=== PATIENT | male | born 1960 | race Caucasian/White ===

== ENCOUNTER → 2022-07-27 10:24 | Outpatient (BNVA) | payer MEDICARE, MEDICAID, SELFPAY | PROVIDERS: Family Provider Internal Medicine; PCP Internal Medicine; Visit Provider Podiatrist Foot & Ankle Surgery | DX: E11.8 Type 2 diabetes mellitus with unspecified complications (principal); E11.40 Type 2 diabetes mellitus with diabetic neuropathy, unspecified; M21.41 Flat foot [pes planus] (acquired), right foot; M21.42 Flat foot [pes planus] (acquired), left foot; L60.3 Nail dystrophy; L84 Corns and callosities; M20.41 Other hammer toe(s) (acquired), right foot; M20.42 Other hammer toe(s) (acquired), left foot; M20.31 Hallux varus (acquired), right foot; Z79.84 Long term (current) use of oral hypoglycemic drugs | CPT/HCPCS: 99214 ==

== ENCOUNTER → 2023-01-25 08:41 | Outpatient (BNVA) | payer MEDICARE, MEDICAID, SELFPAY | PROVIDERS: Family Provider Internal Medicine; PCP Internal Medicine; Visit Provider Podiatrist Foot & Ankle Surgery | DX: E11.8 Type 2 diabetes mellitus with unspecified complications (principal); E11.40 Type 2 diabetes mellitus with diabetic neuropathy, unspecified; M21.41 Flat foot [pes planus] (acquired), right foot; M21.42 Flat foot [pes planus] (acquired), left foot; L60.3 Nail dystrophy; L84 Corns and callosities; Z79.84 Long term (current) use of oral hypoglycemic drugs; M20.41 Other hammer toe(s) (acquired), right foot; M20.42 Other hammer toe(s) (acquired), left foot; M20.31 Hallux varus (acquired), right foot | CPT/HCPCS: 11056; 11721 ==

== ENCOUNTER → 2023-04-12 13:35 | Outpatient (BNVA) | payer MEDICARE, MEDICAID, SELFPAY | PROVIDERS: Family Provider Internal Medicine; PCP Internal Medicine; Visit Provider Podiatrist Foot & Ankle Surgery | DX: E11.40 Type 2 diabetes mellitus with diabetic neuropathy, unspecified (principal); L60.8 Other nail disorders; L60.3 Nail dystrophy; L84 Corns and callosities; M20.42 Other hammer toe(s) (acquired), left foot; M20.41 Other hammer toe(s) (acquired), right foot; M20.31 Hallux varus (acquired), right foot; Z79.84 Long term (current) use of oral hypoglycemic drugs; M21.42 Flat foot [pes planus] (acquired), left foot; M21.41 Flat foot [pes planus] (acquired), right foot | CPT/HCPCS: 11056; 11721 ==

== ENCOUNTER → 2023-06-22 13:55 | Outpatient (BNVA) | payer MEDICARE, MEDICAID, SELFPAY | PROVIDERS: Family Provider Internal Medicine; PCP Internal Medicine; Visit Provider Podiatrist Foot & Ankle Surgery | DX: E11.40 Type 2 diabetes mellitus with diabetic neuropathy, unspecified (principal); M21.41 Flat foot [pes planus] (acquired), right foot; M21.42 Flat foot [pes planus] (acquired), left foot; M20.30 Hallux varus (acquired), unspecified foot; L60.3 Nail dystrophy; L84 Corns and callosities; M20.42 Other hammer toe(s) (acquired), left foot; M20.41 Other hammer toe(s) (acquired), right foot; M20.31 Hallux varus (acquired), right foot; Z79.84 Long term (current) use of oral hypoglycemic drugs | CPT/HCPCS: 11055; 11721 ==

== ENCOUNTER → 2023-08-22 14:00 | Outpatient (BNVA) | payer MEDICARE, MEDICAID, SELFPAY | PROVIDERS: Family Provider Internal Medicine; PCP Internal Medicine; Referring Provider Nurse Practitioner Family; Visit Provider Surgery | DX: Z12.11 Encounter for screening for malignant neoplasm of colon (principal) | CPT/HCPCS: 99024; 99203 ==

== ENCOUNTER → 2023-09-14 13:04 | Outpatient (BNVA) | payer MEDICARE, MEDICAID, SELFPAY | PROVIDERS: Family Provider Internal Medicine; PCP Internal Medicine; Visit Provider Podiatrist Foot & Ankle Surgery | DX: E11.40 Type 2 diabetes mellitus with diabetic neuropathy, unspecified (principal); M20.41 Other hammer toe(s) (acquired), right foot; M20.42 Other hammer toe(s) (acquired), left foot; M21.41 Flat foot [pes planus] (acquired), right foot; M21.42 Flat foot [pes planus] (acquired), left foot; M20.31 Hallux varus (acquired), right foot; L60.3 Nail dystrophy; L84 Corns and callosities; Z79.84 Long term (current) use of oral hypoglycemic drugs | CPT/HCPCS: 11056; 11721 ==

== ENCOUNTER 2023-12-15 15:57 | Emergency (ER) | payer MEDICARE, MEDICAID, SELFPAY ==
[2023-12-15] VITALS (18 sets, daily range): BP systolic 145–198; BP diastolic 78–108; PULSE 75–92; RESP 18; TEMP 36.6; O2SAT 91–100
--- NOTE | 2023-12-15 16:00 | ECG_ITS ---
[facility] Test Date: 2023-12-15 Pat Name: Osorio Garcia Department: Room: Gender: Male International Logistics Manager: : 1960 Requested By: Angelo Ramos Order Number: [id number] Ciera MD: Yasir Jennings M.D. Measurements Intervals [place] Rate: 83 P: -9 FL: 147 QRS: 23 QRSD: 108 T: 139 QT: 354 QTc: 418 Interpretive Statements SINUS RHYTHM ST DEVIATION AND MODERATE T-WAVE ABNORMALITY, CONSIDER LATERAL ISCHEMIA [-0.1+ mV T-WAVE IN I/aVL/V5/V6] No previous ECG available for comparison Electronically Signed On 12-15-2023 22:12:51 CDT by Yasir Jennings M.D. [email or web address].[employer]/store/NU/[id number] f
--- NOTE | 2023-12-15 16:06 | XRR_ITS ---
PROCEDURE INFORMATION: Exam: XR Chest Exam date and time: 12/15/2023 4:30 PM Age: 63 years old Clinical indication: Other: Chest pain, left shoulder pain TECHNIQUE: Imaging protocol: Radiologic exam of the chest. Views: 1 view. COMPARISON: CR XR chest 2V* [id number] 11/03/2017 11:52 AM FINDINGS: Lungs: Unremarkable. No consolidation. Pleural spaces: Unremarkable. No pleural effusion. No pneumothorax. Heart/Mediastinum: Unremarkable. No cardiomegaly. Bones/joints: Visualized osseous structures show no acute abnormality. Other findings: No significant change with prior exam. XR/XR chest 1V portable [id number] IMPRESSION: No acute cardiopulmonary abnormality.
--- NOTE | 2023-12-15 17:19 | ED_ITS ---
HPI - Chest Pain 2 General: Chief Complaint: Chest Pain Stated Complaint: chest pain, left arm pain and back pain Time Seen by Provider: 12/15/23 16:54 History of Present Illness: Presents to the ER with complaints of off-and-on chest pain over the last few weeks. Patient said the pain is reproducible with palpation. Patient has no cardiac history. Patient states the pain comes and goes on its own free will nothing will bring it on or take it away. Patient is a diabetic and takes 2 aspirin a day. Patient denies any nausea vomiting coughs colds fever chills diarrhea constipation shortness of breath diaphoresis. Review of Systems 2 General: Reports: 10 or more systems reviewed and unremarkable except in HPI and below PFSH ED 2 PFSH: Medical History Diabetes Hypertension GERD (gastroesophageal reflux disease) Morbid obesity Social History Smoking and tobacco/nicotine status: former use of tobacco/nicotine Physical Exam 2 Const: COMMON NORMALS: no acute distress, average body habitus, patient oriented x3, no limitations, healthy appearing, alert and well nourished HENMT: COMMON NORMALS: normocephalic, atraumatic, hearing grossly normal bilaterally, external ears normal, Normal external nose present, moist oral mucous membranes and oropharynx normal HEAD & SCALP: normocephalic and atraumatic NOSE: Normal external nose present EXTERNAL EAR: Yes external ears normal Neck/C-Spine: COMMON NORMALS: no JVD Chest: COMMONS NORMALS: normal inspection of the chest; negative for normal palpation of entire chest wall (Palpation of anterior chest wall reproduces pain) Resp: COMMON NORMALS: normal respiratory effort, No retractions, No use of accessory muscles and clear to auscultation bilaterally AUSCULTATION: clear to auscultation bilaterally Cardio: COMMON NORMALS: no JVD, regular rate, regular rhythm, S1 normal heart sound present, S2 normal heart sound present, No gallops present (Cardio), No clicks present (Cardio), No murmurs present (Cardio) and No rub (Cardio) R ATE: regular rate RHYTHM: regular rhythm HEART SOUNDS: S1 normal heart sound present and S2 normal heart sound present GI: COMMON NORMALS: Normal to inspection, nondistended, normoactive bowel sounds present, Soft to palpation, non-tender, No hepatosplenomegaly present and no masses PALPATION: Yes Soft to palpation and Yes No hepatosplenomegaly present Neuro: COMMON NORMALS: patient oriented x3 SENSORIUM/ORIENTATION: Yes alert Course 2 Vital Signs: Vital signs: Vital Signs Temperature 97.9 F 12/15/23 16:04 Pulse Rate 78 12/15/23 20:52 Respiratory Rate 18 12/15/23 16:04 Blood Pressure 198/108 12/15/23 20:30 Pulse Oximetry 98 12/15/23 20:52 Oxygen Delivery Me thod Room Air 12/15/23 20:52 MDM - Chest Pain Medical Decision Making Patient was worked up in a standard cardiac fashion with serial EKGs, cardiac enzymes chest x-ray. Patient's white count was slightly elevated at 16, troponin baseline was 81 and 2-hour was 83.3 for delta of 2.3. During the patient stay his home blood pressure continued to rise until it was approximately 198/108 patient was given 20 mg of hydralazine IV. Anticipate this will reduce his blood pressure and patient be discharged home to follow-up with his PCP for further evaluation testing. Differential Diagnosis Unlikely acute massive pulmonary embolism, acute respiratory failure, acute myocardial infarction, cardiac arrest or sudden cardiac Medical Records I reviewed the patient's medical records. Lab Data I reviewed the patient's lab results. 12/15/23 17:12 12/15/23 17:12 Radiology Impressions Chest X-Ray 12/15/23 16:06 IMPRESSION: No acute cardiopulmonary abnormality. Laboratory Results WBC 16.10 10^3/uL (3.29-11.43) H 12/15/23 17:12 RBC 5.56 10^6/uL (3.85-5.65) 12/15/23 17:12 Hgb 14.90 g/dL (11.27-16.99) 12/15/23 17:12 Hct 43.8 % (37-53) 12/15/23 17:12 MCV 78.8 fl (82-101) L 12/15/23 17:12 MCH 26.8 pg (27-33) L 12/15/23 17:12 MCHC 34.0 g/dL (30-55) 12/15/23 17:12 RDW 13.3 % (12.1-15.1) 12/15/23 17:12 Plt Count 348 10^3/cmm (157-399) 12/15/23 17:12 MPV 9.4 fL (7.4-10.4) 12/15/23 17:12 Neut % (Auto) 69.7 % 12/15/23 17:12 Lymph % (Auto) 22.1 % 12/15/23 17:12 [place] % (Auto) 5.9 % 12/15/23 17:12 Eos % (Auto) 1.7 % 12/15/23 17:12 Baso % (Auto) 0.4 % 12/15/23 17:12 Neut # (Auto) 11.22 10^3/uL (1.8-7.7) H 12/15/23 17:12 Lymph # (Auto) 3.6 10^3/uL (0.8-4.8) 12/15/23 17:12 [place] # (Auto) 1.0 10^3/uL (0.2-0.9) H 12/15/23 17:12 Eos # (Auto) 0.3 10^3/uL (0.0-0.8) 12/15/23 17:12 Baso # (Auto) 0.1 10^3/uL (0.0-0.1) 12/15/23 17:12 Nucleated RBC % (auto) 0 % 12/15/23 17:12 Nucleated RBCs # 0.0 /100WBC 12/15/23 17:12 Sodium 135 mmol/L (136-145) L 12/15/23 17:12 Potassium 3.3 mmol/L (3.5-5.1) L 12/15/23 17:12 Chloride 93 mmol/L (98-107) L 12/15/23 17:12 Carbon Dioxide 28 mmol/L (22-29) 12/15/23 17:12 Anion Gap 17.3 (5-19) 12/15/23 17:12 BUN 15 mg/dL (8-23) 12/15/23 17:12 Creatinine 0.9 mg/dL (0.7-1.2) 12/15/23 17:12 GFR Calculation 85.8 mL/min (90-130) L 12/15/23 17:12 Glucose 76 mg/dL (65-115) 12/15/23 17:12 Calculated Osmolality 280 mOsm/kg (285-295) L 12/15/23 17:12 Calcium 9.1 mg/dL (8.5-10.5) 12/15/23 17:12 Total Bilirubin 0.9 mg/dL (0.15-1.2) 12/15/23 17:12 AST 23 U/L (0-40) 12/15/23 17:12 ALT 19 U/L (0-41) 12/15/23 17:12 Alkaline Phosphatase 104 U/L (40-130) 12/15/23 17:12 Troponin T Baseline 81 ng/L (0-15) H 12/15/23 17:12 Troponin T 120 Minute 83.30 ng/L (0-15) H 12/15/23 19:11 Delta Troponin T 2.30 ABS# (0-10) 12/15/23 19:11 NT-Pro-B Natriuret Pep 103 pg/mL (0-125) 12/15/23 17:12 Total Protein 6.5 g/dL (6.6-8.7) L 12/15/23 17:12 Albumin 4.2 g/dL (3.5-5.2) 12/15/23 17:12 Globulin 2.3 g/dL (1.3-4.6) 12/15/23 17:12 Lipase 25 U/L (13-60) 12/15/23 17:12 All radiology interpretation(s) finalized by discharge Discharge Plan Discharge Patient Disposition: Home Clinical Impression: Atypical chest pain Hypertension Qualifiers: Hypertension type: unspecified Qualified Code(s): I10 - Essential (primary) hypertension Condition: Stable Prescriptions: No Action lisinopril 40 mg tablet 40 mg PO DAILY omeprazole 20 mg capsule,delayed release(DR/EC) 20 mg PO DAILY aspirin 81 mg tablet,delayed release (DR/EC) 81 mg PO DAILY metformin 1,000 mg tablet extended release 24hr 1,000 mg PO DAILY hydrochlorothiazide 25 mg tablet 25 mg PO DAILY hydrocodone-acetaminophen [[place]] 5-325 mg tablet 1 tab PO Q4H PRN benzonatate 100 mg capsule 100 mg PO BID PRN Trulicity 1.5 mg/0.5 mL pen injector SUBCUT (DME) Diabetic shoes See Rx Instructions .ROUTE .MEDSUPPLY Qty: 1 0RF Rx Instructions: As directed, with 3 pairs of inserts (DME) Diabetic shoes See Rx Instructions .ROUTE .MEDSUPPLY Qty: 1 0RF Rx Instructions: With 3 pairs of inserts made by the [employer] potassium chloride 20 mEq tablet,ER particles/crystals 20 meq PO DAILY Discharge Orders: Discharge ED (Routine); Ordered 12/15/23 Ordered By: Ld Schwab Referrals: Chio Camara MD [Primary Care Provider] - 1 week Patient Instructions: Chest Pain (ED), Hypertension (ED) Activity Restrictions/Additional Instructions: Your chest pain evaluation in the ER did not show any acute cardiac cause of chest pain. Your chest pain more likely is noncardiac in nature. Please follow-up with your family practitioner within next 7 to 10 days for further evaluation and testing. Please take your blood pressure at least 1 time daily keep blood pressure log and take it to you Coding Level of Care Code ED [employer] for Gianfranco Wilcox
[2023-12-15 17:44] LABS: Basophils # 0.1 10^3/uL (0.0-0.1); Basophils % 0.4 %; Eosinophils # 0.3 10^3/uL (0.0-0.8); Eosinophils % 1.7 %; Hematocrit 43.8 % (37-53); Lymphocytes # 3.6 10^3/uL (0.8-4.8); Lymphocytes % 22.1 %; Mean Corpuscular Hemoglobin 26.8 pg (27-33); Mean Corpuscular Volume 78.8 fl (82-101); Mean Platelet Volume 9.4 fL (7.4-10.4); Monocytes % 5.9 %; Neutrophils # 11.22 10^3/uL (1.8-7.7); Neutrophils % 69.7 %; Nucleated Red Blood Cells % 0 %; Platelet Count 348 10^3/cmm (157-399); Red Blood Count 5.56 10^6/uL (3.85-5.65); Red Cell Distribution Width 13.3 % (12.1-15.1)
--- NOTE | 2023-12-15 18:06 | ECG_ITS ---
[facility] Test Date: 2023-12-15 Pat Name: Osorio Garcia Department: Room: Gender: Male Residential Care Facility Manager: : 1960 Requested By: Angelo Ramos Order Number: [id number] Ciera MD: Yasir Jennings M.D. Measurements Intervals [place] Rate: 79 P: 41 [place]: 197 QRS: 21 QRSD: 113 T: 133 QT: 401 QTc: 462 Interpretive Statements SINUS RHYTHM MODERATE INTRAVENTRICULAR CONDUCTION DELAY [110+ ms QRS DURATION] ST DEVIATION AND MODERATE T-WAVE ABNORMALITY, CONSIDER LATERAL ISCHEMIA [-0.1+ mV T-WAVE IN I/aVL/V5/V6] Compared to ECG 12/15/2023 16:00:44 Intraventricular conduction delay now present T-wave abnormality still present Possible ischemia still present Electronically Signed On 12-15-2023 22:19:34 CDT by Yasir Jennings M.D. [email or web address] centerT[facility].[employer]/store/OM/[id number]
[2023-12-15 18:07] LABS: Troponin(5th) Baseline 81 ng/L (0-15)
[2023-12-15 18:12] LABS: Alanine Aminotransferase 19 U/L (0-41); Albumin Level 4.2 g/dL (3.5-5.2); Alkaline Phosphatase 104 U/L (40-130); Blood Urea Nitrogen 15 mg/dL (8-23); Calcium 9.1 mg/dL (8.5-10.5); Carbon Dioxide 28 mmol/L (22-29); Chloride 93 mmol/L (98-107); Creatinine Clr Calc Pharmacy 115.6414; Globulin 2.3 g/dL (1.3-4.6); Glomerular Filtration Rate 85.8 mL/min (90-130); Glucose 76 mg/dL (65-115); Lipase 25 U/L (13-60); NT Pro B Type Natriuretic Pept 103 pg/mL (0-125); Osmolality Calculated 280 mOsm/kg (285-295); Sodium 135 mmol/L (136-145); Total Bilirubin 0.9 mg/dL (0.15-1.2); Total Protein 6.5 g/dL (6.6-8.7)
[2023-12-15 18:14] LABS: Anion Gap 17.3 (5-19); Aspartate Amino Transferase 23 U/L (0-40); Potassium 3.3 mmol/L (3.5-5.1)
[2023-12-15] MEDS: hyDRALAzine 20 mg/mL INJ 1 mL IVP (20:59)
[2023-12-15 21:44] LABS: Glucose Point of Care 105 mg/dL (70-110)
--- NOTE | 2023-12-15 22:06 | ECG_ITS ---
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 Measurements Intervals [place] Rate: 83 P: -2 [place]: 171 QRS: 36 QRSD: 130 T: 71 QT: 398 QTc: 469 Interpretive Statements SINUS RHYTHM MODERATE INTRAVENTRICULAR CONDUCTION DELAY [110+ ms QRS DURATION] NONSPECIFIC ST & T-WAVE ABNORMALITY Compared to ECG 12/15/2023 18:15:47 Possible ischemia no longer present T-wave abnormality still present Electronically Signed On 12-15-2023 22:19:50 CDT by Yasir Jennings M.D. [email or web address].[employer]/store/OM/[id number]
== END 2023-12-15 22:16 | disposition home or self-care (01) ==
PROVIDERS: Nurse Practitioner Family; Emergency Provider Emergency Medicine; PCP Internal Medicine
DX: R07.89 Other chest pain (principal); I10 Essential (primary) hypertension; Z79.82 Long term (current) use of aspirin; Z79.84 Long term (current) use of oral hypoglycemic drugs; Z79.85 Long-term (current) use of injectable non-insulin antidiabetic drugs; E11.9 Type 2 diabetes mellitus without complications; Z87.891 Personal history of nicotine dependence
CPT/HCPCS: 36415; 36416; 71045; 80053; 82962; 83690; 83880; 84484; 85025; 93005; 96374; 99285; J0360

== ENCOUNTER → 2023-12-21 11:13 | Outpatient (BNVA) | payer MEDICARE, MEDICAID, SELFPAY | PROVIDERS: Family Provider Internal Medicine; PCP Internal Medicine; Visit Provider Podiatrist Foot & Ankle Surgery | DX: E11.40 Type 2 diabetes mellitus with diabetic neuropathy, unspecified (principal); L60.3 Nail dystrophy; L84 Corns and callosities; Z79.84 Long term (current) use of oral hypoglycemic drugs | CPT/HCPCS: 11056; 11721 ==

== ENCOUNTER 2024-01-03 11:41 | Outpatient (CLI) | payer MEDICARE, MEDICAID, SELFPAY ==
--- NOTE | 2024-01-03 | ECG_ITS ---
[facility] Test Date: 2024-01-03 Pat Name: Osorio Garcia Department: Room: Gender: Male Physician Interventional Cardiologist: Rach Abrams : 1960 Requested By: Ivy Newell Order Number: [id number] Ciera MD: Abhijit Escobedo M.D. Interpretive Statements NAME OF STUDY: TREADMILL STRESS TEST INDICATION: [Chest Pain, ] EXERCISE DATA: The patient was exercised by Rui protocol. Baseline heart rate was 79 beats per minute. Baseline blood pressure was 147/91 millimeters of mercury. Maximal predicted heart rate was 159 beats per minute. Maximum heart rate achieved was 146 which was 91% of the maximum predicted heart rate. Maximum blood pressure was 204/51 millimeters of mercury. Total exercise time was 3 minutes and 11 seconds. Maximum METs achieved was 7. The reason for ending the test was maximal effort achieved.. The patient complained of heartburn radiating to throat and shortness of breath during the stress test, which then resolved at the end of the test. ELECTROCARDIOGRAM: BASELINE: Showed sinus rhythm, normal axis, no significant ST-T changes at the baseline noted. [] EXERCISE: At the peak exercise level, [] No significant ST-T changes suggestive of ischemia noted. [] RECOVERY: During the recovery period, heart rate dropped appropriately. No significant ST-T changes in the recovery suggestive of ischemia noted. [] CONCLUSION: 1. Exercise capacity is fair 2. Heart rate response was appropriate 3. Blood pressure response was hypertensive 4. Symptoms were concerning for angina 5. EKG portion of stress test did not show ischemia.. Electronically Signed On 01-12-2024 12:24:42 CDT by Abhijit Escobedo M.D. [email or web address] Softwarevan [facility].[employer]/store/[id number]
[2024-01-03 11:45] VITALS: BMI 45.8
[2024-01-03 12:23] VITALS: BP 160/71; PULSE 99
== END 2024-01-03 11:42 | disposition home or self-care (01) ==
PROVIDERS: PCP Internal Medicine; Visit Provider Nurse Practitioner Family
DX: R07.9 Chest pain, unspecified (principal)
CPT/HCPCS: 93017

== ENCOUNTER → 2024-03-27 11:15 | Outpatient (BNVA) | payer MEDICARE, MEDICAID, SELFPAY | PROVIDERS: PCP Internal Medicine; Visit Provider Podiatrist Foot & Ankle Surgery | DX: E11.40 Type 2 diabetes mellitus with diabetic neuropathy, unspecified (principal); L60.3 Nail dystrophy; L84 Corns and callosities; Z79.84 Long term (current) use of oral hypoglycemic drugs | CPT/HCPCS: 11056; 11721 ==

== ENCOUNTER 2024-04-10 08:28 | Day surgery (SDC) | payer MEDICARE, MEDICAID, SELFPAY ==
[2024-04-10 08:49] VITALS: BP 161/100; PULSE 88; RESP 18; TEMP 36.6; O2SAT 96
[2024-04-10 08:50] VITALS: BMI 44.3
[2024-04-10] MEDS: sodium chloride 0.9% 1,000 ML 30 ML IV (08:58)
--- NOTE | 2024-04-10 09:03 | W.PM.OPSFHP ---
Same Day Surgery H&P Indication for Procedure/HPI DATE OF PROCEDURE: April 10, 2024 CHIEF COMPLAINT/INDICATIONFOR SURGICAL PROCEDURE: need for screening colonoscopy PREOP DIAGNOSIS: need for screening colonoscopy PLANNED PROCEDURE: Operation Date: 04/10/24 09:45 Proposed Procedures p 39382 colon G0121 screen colon A risk Z12.11(Not Applicable) - Jose F Caldwell MD Medications/Allergies* Home Medications Medication Instructions Recorded Confirmed Type aspirin 81 mg tablet,delayed 81 mg PO DAILY 11/27/19 04/06/24 History release dulaglutide 1.5 mg/0.5 mL 1.5 mg SUBCUT DIRECTED 11/27/19 04/06/24 History subcutaneous pen injector (Trulicity) hydrochlorothiazide 25 mg tablet 25 mg PO DAILY 11/27/19 04/06/24 History hydrocodone 5 mg-acetaminophen 325 1 tab PO Q4H PRN Pain 11/27/19 04/06/24 History mg tablet ([place]) lisinopril 40 mg tablet 40 mg PO DAILY 11/27/19 04/06/24 History metformin 1,000 mg tablet,extended 1,000 mg PO DAILY 11/27/19 04/06/24 History release 24hr (osmotic) omeprazole 20 mg capsule,delayed 20 mg PO DAILY 11/27/19 04/06/24 History release potassium chloride 20 mEq 20 meq PO DAILY 08/22/23 04/06/24 History tablet,extended release(part/cryst) Allergies/Adverse Reactions Allergy/AdvReac Type Severity Reaction Status Date / Time No Known Allergies Allergy Verified 04/10/24 08:58 Current Medications: Generic Name Dose Route Start Last Admin Trade Name Freq PRN Reason Stop Dose Admin Sodium Chloride 1,000 mls @ 30 mls/hr 04/10/24 08:45 04/10/24 08:58 Sodium Chloride 0.9% IV 04/11/24 08:44 30 mls/hr .Q24H RUFINO Administration Pertinent History/Comorbid Conditions* Medical History (Updated 12/23/23 @ 00:01 by KRIS Barker) Diabetes Hypertension GERD (gastroesophageal reflux disease) Morbid obesity Social History Smoking and tobacco/nicotine status: former use of tobacco/nicotine Pertinent Exam Findings alert, oriented x 3, clear to auscultation bilaterally and regular rate & rhythm Recommendations Surgery/Procedure today Coding Level of Care Code Acute Code for Chg Fwd
[2024-04-10 09:18] LABS: Glucose Point of Care 125 mg/dL (70-110)
--- NOTE | 2024-04-10 09:53 | P.ANESASSM_ITS ---
Pre-Anesthetic Assessment Height/Weight: Height 1.75 m Weight 136.078 kg Temp Pulse Resp BP Pulse Ox O2 Del Method 97.9 F 88 18 161/100 96 Room Air 04/10/24 08:49 04/10/24 08:49 04/10/24 08:49 04/10/24 08:49 04/10/24 08:49 04/10/24 08:49 Preop Diagnosis: need for screening colonoscopy Operation Date: 04/10/24 09:45 Proposed Procedures p 26763 colon G0121 screen colon A risk Z12.11(Not Applicable) - Jose F Caldwell MD Familial anesthetic complications: None Was Beta Mikel taken within 24 hours: N/A Was Clonidine taken within 24 hours: N/A Last intake: Intake Last Liquid Date 04/10/24 Last Liquid Time 08:30 Last Solid Date 04/08/24 Social No alcohol and No tobacco Exam alert, oriented x 3, clear to auscultation bilaterally and regular rate & rhythm Airway Mallampati: Class IV Dentition: other (missing) Comments: Comments: full murphy CV/HEM Hypertension strest test negative for EKG changes, fair exercise capacity, anginal symptoms induced. Patient was told regarding the results that no further investigation was required and that his heart was good Metabolic Diabetes Mellitus and Morbid Obesity Anesthetic Plan ASA status: 3 Anesthesia: MAC Risk of > 500 ml blood loss (7ml/kg in children): No Medications/Allergies Home Medications Medication Instructions Recorded Confirmed Last Taken Type aspirin 81 mg tablet,delayed 81 mg PO DAILY 11/27/19 04/06/24 04/06/24 History release dulaglutide 1.5 mg/0.5 mL 1.5 mg SUBCUT DIRECTED 11/27/19 04/06/24 04/01/24 History subcutaneous pen injector (Trulicity) hydrochlorothiazide 25 mg tablet 25 mg PO DAILY 11/27/19 04/06/24 04/06/24 History hydrocodone 5 mg-acetaminophen 325 1 tab PO Q4H PRN Pain 11/27/19 04/06/24 04/06/24 History mg tablet ([place]) lisinopril 40 mg tablet 40 mg PO DAILY 11/27/19 04/06/24 04/06/24 History metformin 1,000 mg tablet,extended 1,000 mg PO DAILY 11/27/19 04/06/24 04/06/24 History release 24hr (osmotic) omeprazole 20 mg capsule,delayed 20 mg PO DAILY 11/27/19 04/06/24 04/06/24 History release Diabetic shoes #1 ea 09/11/20 03/27/24 Unknown Rx potassium chloride 20 mEq 20 meq PO DAILY 08/22/23 04/06/24 04/06/24 History tablet,extended release(part/cryst) Diabetic shoes #1 ea 09/14/23 03/27/24 Unknown Rx Allergies Allergy/AdvReac Type Severity Reaction Status Date / Time No Known Allergies Allergy Verified 04/10/24 08:58 Current Medications Generic Name Dose Route Start Last Admin Trade Name Freq PRN Reason Stop Dose Admin Sodium Chloride 1,000 mls @ 30 mls/hr 04/10/24 08:45 04/10/24 08:58 Sodium Chloride 0.9% IV 04/11/24 08:44 30 mls/hr .Q24H RUFINO Administration PFSH Anesthesia Medical History Diabetes Hypertension GERD (gastroesophageal reflux disease) Morbid obesity Social History Smoking and tobacco/nicotine status: former use of tobacco/nicotine Data Anesthesia Cardiac Studies: No Data to Display
--- NOTE | 2024-04-10 10:44 | P.ANESASSM_ITS ---
Pre-Anesthetic Assessment Height/Weight: Height 1.75 m Weight 136.078 kg Temp Pulse Resp BP Pulse Ox O2 Del Method 97.9 F 88 18 161/100 96 Room Air 04/10/24 08:49 04/10/24 08:49 04/10/24 08:49 04/10/24 08:49 04/10/24 08:49 04/10/24 08:49 Preop Diagnosis: need for screening colonoscopy Operation Date: 04/10/24 09:45 Proposed Procedures p 62806 colon G0121 screen colon A risk Z12.11(Not Applicable) - Jose F Caldwell MD Familial anesthetic complications: none Was Beta Mikel taken within 24 hours: N/A Was Clonidine taken within 24 hours: N/A Last intake: Intake Last Liquid Date 04/10/24 Last Liquid Time 08:30 Last Solid Date 04/08/24 Social No alcohol and No tobacco Exam alert, oriented x 3, clear to auscultation bilaterally and regular rate & rhythm Airway Submandibular: within normal limits Cervical ROM: within normal limits Mallampati: Class II Dentition: other Comments: Comments: Missing several teeth History/ROS No significant history except as noted and No significant complaints Pulmonary None reported CV/HEM Hypertension None reported Hepatic None reported GI Gastroesophageal Reflux Disease Metabolic Diabetes Mellitus [facility] Lower Back Pain Anesthetic Plan ASA status: 3 Anesthesia: MAC Risk of > 500 ml blood loss (7ml/kg in children): No Medications/Allergies Home Medications Medication Instructions Recorded Confirmed Last Taken Type aspirin 81 mg tablet,delayed 81 mg PO DAILY 11/27/19 04/06/24 04/06/24 History release dulaglutide 1.5 mg/0.5 mL 1.5 mg SUBCUT DIRECTED 11/27/19 04/06/24 04/01/24 History subcutaneous pen injector (Trulicity) hydrochlorothiazide 25 mg tablet 25 mg PO DAILY 11/27/19 04/06/24 04/06/24 History hydrocodone 5 mg-acetaminophen 325 1 tab PO Q4H PRN Pain 11/27/19 04/06/24 0 04/06/24 History mg tablet ([place]) lisinopril 40 mg tablet 40 mg PO DAILY 11/27/19 04/06/24 04/06/24 History metformin 1,000 mg tablet,extended 1,000 mg PO DAILY 0304/06/24 04/06/24 History release 24hr (osmotic) omeprazole 20 mg capsule,delayed 20 mg PO DAILY 11/27/19 04/06/24 04/06/24 History release Diabetic shoes #1 ea 09/11/20 03/27/24 Unknown Rx potassium chloride 20 mEq 20 meq PO DAILY 08/22/23 04/06/24 04/06/24 History tablet,extended release(part/cryst) Diabetic shoes #1 ea 09/14/23 03/27/24 Unknown Rx Allergies Allergy/AdvReac Type Severity Reaction Status Date / Time No Known Allergies Allergy Verified 04/10/24 08:58 Current Medications Generic Name Dose Route Start Last Admin Trade Name Freq PRN Reason Stop Dose Admin Sodium Chloride 1,000 mls @ 30 mls/hr 04/10/24 08:45 04/10/24 08:58 Sodium Chloride 0.9% IV 04/11/24 08:44 30 mls/hr .Q24H RUFINO Administration PFSH Anesthesia Medical History Diabetes Hypertension GERD (gastroesophageal reflux disease) Morbid obesity Social History Smoking and tobacco/nicotine status: former use of tobacco/nicotine Data Anesthesia Cardiac Studies: No Data to Display
[2024-04-10 11:50] VITALS: BP 118/64; PULSE 87; RESP 18; TEMP 36.2; O2SAT 93
[2024-04-10 12:03] VITALS: BP 97/66; PULSE 86; RESP 18; O2SAT 90
[2024-04-10 12:10] VITALS: BP 135/73; PULSE 78; RESP 18; O2SAT 92
[2024-04-10 12:20] VITALS: BP 133/76; PULSE 76; RESP 18; O2SAT 94
--- NOTE | 2024-04-10 12:35 | ANE.PACU2 ---
Inpatient post-anesthesia follow up: Airway intact: Yes Vital signs: Temperature 97.2 F Pulse Rate 76 Respiratory Rate 18 Blood Pressure 133/76 Pulse Oximetry 94 Oxygen Delivery Me thod Room Air Oxygen Flow Rate Fraction of Inspir ed Oxygen Hydration adequate: Yes Nausea and vomiting: No Pain level: 1 Mental status: Baseline
== END 2024-04-10 12:39 | disposition home or self-care (01) ==
PROVIDERS: PCP Internal Medicine; Visit Provider Surgery
PROC: 0DJD8ZZ Inspection of Lower Intestinal Tract, Via Natural or Artificial Opening Endoscopic (ICD-10-PCS; CPT 45378; principal; 2024-04-10 09:45)
DX: Z12.11 Encounter for screening for malignant neoplasm of colon (principal); D12.2 Benign neoplasm of ascending colon; Z79.82 Long term (current) use of aspirin; Z79.84 Long term (current) use of oral hypoglycemic drugs; E11.9 Type 2 diabetes mellitus without complications; I10 Essential (primary) hypertension; K21.9 Gastro-esophageal reflux disease without esophagitis; E66.01 Morbid (severe) obesity due to excess calories; Z68.41 Body mass index [BMI] 40.0-44.9, adult
CPT/HCPCS: 36416; 45380; 82962; 88305; J2704; J7030

== ENCOUNTER → 2024-05-04 08:20 | Outpatient (BNVA) | payer MEDICARE, MEDICAID, SELFPAY | PROVIDERS: PCP Internal Medicine; Visit Provider Surgery | DX: Z09 Encounter for follow-up examination after completed treatment for conditions other than malignant neoplasm (principal) | CPT/HCPCS: 99213 ==

== ENCOUNTER 2024-05-23 14:46 | Oncology outpatient (recurring) (ONCR) | payer MEDICARE, MEDICAID, SELFPAY ==
[2024-05-23 16:25] LABS: Basophils # 0.1 10^3/uL (0.0-0.1); Basophils % 0.6 %; Eosinophils # 0.4 10^3/uL (0.0-0.8); Eosinophils % 2.6 %; Lymphocytes # 3.5 10^3/uL (0.8-4.8); Lymphocytes % 25.8 %; Mean Corpuscular HGB Conc 34.5 g/dL (30-55); Mean Corpuscular Hemoglobin 27.3 pg (27-33); Mean Corpuscular Volume 78.9 fl (82-101); Mean Platelet Volume 8.8 fL (7.4-10.4); Monocytes # 1.2 10^3/uL (0.2-0.9); Monocytes % 8.6 %; Neutrophils # 8.45 10^3/uL (1.8-7.7); Nucleated Red Blood Cells % 0 %; Platelet Count 380 10^3/cmm (157-399); Red Blood Count 5.32 10^6/uL (3.85-5.65); Red Cell Distribution Width 13.4 % (12.1-15.1); White Blood Count 13.62 10^3/uL (3.29-11.43)
[2024-05-23 16:49] LABS: Alanine Aminotransferase 18 U/L (0-41); Alkaline Phosphatase 98 U/L (40-130); Anion Gap 15.9 (5-19); Aspartate Amino Transferase 17 U/L (0-40); Blood Urea Nitrogen 15 mg/dL (8-23); Calcium 9.1 mg/dL (8.5-10.5); Carbon Dioxide 27 mmol/L (22-29); Chloride 96 mmol/L (98-107); Creatinine Clr Calc Pharmacy 87.7266; Globulin 2.9 g/dL (1.3-4.6); Glomerular Filtration Rate 61.6 mL/min (90-130); Glucose 82 mg/dL (65-115); Lactate Dehydrogenase 143 U/L (135-225); Osmolality Calculated 282 mOsm/kg (285-295); Sodium 136 mmol/L (136-145); Total Bilirubin 0.9 mg/dL (0.15-1.2); Total Protein 6.9 g/dL (6.6-8.7)
[2024-05-23 16:58] LABS: Potassium 2.9 mmol/L (3.5-5.1)
[2024-05-23 17:30] LABS: LAB Peripheral Smear Sent for Review
[2024-05-29 16:22] LABS: Erythropoietin 10.6 mIU/mL (2.6-18.5)
== END 2024-05-26 23:59 | disposition home or self-care (01) ==
PROVIDERS: PCP Internal Medicine; Visit Provider Internal Medicine Medical Oncology
DX: D75.1 Secondary polycythemia (principal); D72.829 Elevated white blood cell count, unspecified
CPT/HCPCS: 36415; 80053; 81219; 81270; 81279; 81339; 82668; 83615; 85025; 88374; 99204

== ENCOUNTER → 2024-06-13 14:17 | Outpatient (BNVA) | payer MEDICARE, MEDICAID, SELFPAY | PROVIDERS: PCP Internal Medicine; Visit Provider Internal Medicine | DX: R07.9 Chest pain, unspecified (principal); I10 Essential (primary) hypertension; R94.31 Abnormal electrocardiogram [ECG] [EKG] | CPT/HCPCS: 93005; 99204 ==

== ENCOUNTER 2024-07-03 10:31 | Outpatient (CLI) | payer MEDICARE, MEDICAID, SELFPAY ==
--- NOTE | 2024-07-03 10:35 | XR_ITS ---
WS: [id number] XR wrist LT 2V [id number] REASON FOR EXAM: L WRIST JOINT PAIN FINDINGS: No fracture or focal bone lesion. Joint spaces of the left wrist are intact and well preserved. No soft tissue abnormality. XR/XR wrist LT 2V [id number] IMPRESSION: No significant abnormality identified.
== END 2024-07-03 10:32 | disposition home or self-care (01) ==
LOC: RAD 10:32
PROVIDERS: PCP Internal Medicine; Visit Provider Nurse Practitioner Family
DX: M25.532 Pain in left wrist (principal)
CPT/HCPCS: 73100

== ENCOUNTER → 2024-07-13 10:16 | Outpatient (BNVA) | payer MEDICARE, MEDICAID, SELFPAY | PROVIDERS: PCP Internal Medicine; Visit Provider Physician Assistant | DX: G56.22 Lesion of ulnar nerve, left upper limb; G56.02 Carpal tunnel syndrome, left upper limb; M67.432 Ganglion, left wrist | CPT/HCPCS: 73110; 99203 ==

== ENCOUNTER 2024-07-17 11:43 | Outpatient (CLI) | payer MEDICARE, MEDICAID, SELFPAY ==
--- NOTE | 2024-07-17 12:30 | USCV_ITS ---
GarciaOsorio kahn Age: 63 Gender: M : 1960 Exam Date: 07/17/2024 12:12 Ordering Phys: Abhijit Escobedo M.D ([email or web address]) Technologist: LEANDRA Exam Location: [facility] [place] Indication: CHEST PAIN BP: 157 / 88 HR: 71 Rhythm: Sinus Technical Quality: Adequate MEASUREMENTS (Male / Female) Normal Values 2D ECHO LV Diastolic Diameter PLAX 5.0 cm 4.2 - 5.9 / 3.9 - 5.3 cm IVS Diastolic Thickness 0.9 cm 0.6 - 1.0 / 0.6 - 0.9 cm IVS Systolic Thickness 2.2 cm LVPW Diastolic Thickness 2.1 cm 0.6 - 1.0 / 0.6 - 0.9 cm LVPW Systolic Thickness 2.9 cm LVOT Diameter 2.0 cm LV Ejection Fraction 2D Teich 62.2 % LV Ejection Fraction MOD 4C 60.2 % LV Ejection Fraction MOD 2C 59.2 % LV Ejection Fraction 2C AL 60.4 % LA Diameter 4.1 cm RA Systolic Volume 4C AL 22.9 ml RA Systolic Volume 4C MOD 21.5 ml LA Sys Volume AL 26.0 cm cubed LA Sys Volume Index AL 10.0 cm cubed/m squared Aorta at Sinotubular Diameter 2.2 cm IVC Diameter 1.9 cm M-MODE LA Ao Ratio MM 1.6 AV Cusp Separation MM 1.5 cm DOPPLER AV Peak Velocity 118.0 cm/s LVOT Peak Velocity 110.0 cm/s AV Area Cont Eq vti 3.3 cm squared AV Area Cont Eq pk 2.9 cm squared MV Peak Velocity 78.0 cm/s MV Area PHT 2.9 cm squared Mitral E to A Ratio 0.8 TR Peak Velocity 127.0 cm/s TR Peak Gradient 6.5 mmHg TR Mean Velocity 113.0 cm/s TR Mean Gradient 5.3 mmHg TR Velocity Time Integral 36.5 cm TV Peak E Velocity 61.0 cm/s Right Atrial Pressure 3.0 mmHg Pulmonary Artery Systolic Pressu 9.5 mmHg PV Peak Velocity 84.0 cm/s RV Ejection Time 0.2 s FINDINGS Left Ventricle Normal left ventricular size and systolic function, EF 60%.. Mild left ventricular hypertrophy. No regional wall motion abnormalities. Right Ventricle The right ventricle is normal in size and function. Right Atrium The right atrium is normal in size. Left Atrium The left atrium is normal in size. Mitral Valve Trace mitral valve regurgitation. Aortic Valve No gross abnormalities noted Tricuspid Valve Trace tricuspid valve regurgitation. Pulmonic Valve No gross abnormalities noted Pericardium Normal pericardium without effusion. Aorta Normal ascending aorta dimension. IVC Normal inferior vena cava. CONCLUSIONS Normal left ventricular size and systolic function, EF 60%.. Mild left ventricular hypertrophy. No regional wall motion abnormalities. Normal cardiac chamber sizes. Trace of mitral and tricuspid regurgitation. There is no pericardial effusion. There are no intracardiac masses. Compared to the study from 11/10/2015, there may not be a significant change Dr Yasir Jennings MD FACC (Electronically Signed) Final Date: 18 July 2024 07:07 S
== END 2024-07-17 11:44 | disposition home or self-care (01) ==
LOC: RAD 11:44
PROVIDERS: PCP Internal Medicine; Visit Provider Internal Medicine
DX: R07.9 Chest pain, unspecified (principal); I10 Essential (primary) hypertension
CPT/HCPCS: 93306

== ENCOUNTER 2024-09-13 11:53 | Oncology outpatient (recurring) (ONCR) | payer MEDICARE, MEDICAID, SELFPAY ==
[2024-09-13 12:12] LABS: Basophils # 0.1 10^3/uL (0.0-0.1); Basophils % 0.7 %; Eosinophils # 0.3 10^3/uL (0.0-0.8); Eosinophils % 3.1 %; Lymphocytes % 28.2 %; Mean Corpuscular HGB Conc 34.1 g/dL (30-55); Mean Corpuscular Hemoglobin 26.6 pg (27-33); Mean Corpuscular Volume 78.2 fl (82-101); Mean Platelet Volume 8.7 fL (7.4-10.4); Monocytes # 0.8 10^3/uL (0.2-0.9); Monocytes % 7.3 %; Neutrophils # 6.37 10^3/uL (1.8-7.7); Neutrophils % 60.5 %; Nucleated Red Blood Cells % 0 %; Platelet Count 372 10^3/cmm (157-399); Red Blood Count 5.63 10^6/uL (3.85-5.65); White Blood Count 10.53 10^3/uL (3.29-11.43)
[2024-09-13 12:15] LABS: Erythrocyte Sedimentation Rate 19 mm/hr (0-10)
[2024-09-13 12:31] LABS: Alanine Aminotransferase 24 U/L (0-41); Alkaline Phosphatase 94 U/L (40-130); Blood Urea Nitrogen 12 mg/dL (8-23); C Reactive Protein 6.1 mg/L (0.0-4.9); Calcium 9.7 mg/dL (8.5-10.5); Carbon Dioxide 27 mmol/L (22-29); Chloride 92 mmol/L (98-107); Globulin 2.9 g/dL (1.3-4.6); Glomerular Filtration Rate 85.8 mL/min (90-130); Glucose 144 mg/dL (65-115); Osmolality Calculated 278 mOsm/kg (285-295); Sodium 133 mmol/L (136-145); Total Bilirubin 0.7 mg/dL (0.15-1.2); Total Protein 6.9 g/dL (6.6-8.7)
[2024-09-13 12:44] LABS: Anion Gap 17.2 (5-19); Potassium 3.2 mmol/L (3.5-5.1)
[2024-09-13 12:45] LABS: Aspartate Amino Transferase 25 U/L (0-40)
== END 2024-09-25 23:59 | disposition home or self-care (01) ==
PROVIDERS: PCP Internal Medicine; Visit Provider Internal Medicine Medical Oncology
DX: G56.22 Lesion of ulnar nerve, left upper limb (principal); M67.439 Ganglion, unspecified wrist; G56.03 Carpal tunnel syndrome, bilateral upper limbs; Z53.9 Procedure and treatment not carried out, unspecified reason; D72.829 Elevated white blood cell count, unspecified
CPT/HCPCS: 36415; 80053; 85025; 85651; 86140; 95911; 99213

== ENCOUNTER → 2024-10-09 09:43 | Outpatient (BNVA) | payer MEDICARE, MEDICAID, SELFPAY | PROVIDERS: PCP Internal Medicine; Visit Provider Podiatrist Foot & Ankle Surgery | DX: E11.40 Type 2 diabetes mellitus with diabetic neuropathy, unspecified (principal); L60.3 Nail dystrophy; L84 Corns and callosities | CPT/HCPCS: 11056; 11721 ==

== ENCOUNTER 2024-12-20 12:08 | Outpatient (CLI) | payer MEDICARE, MEDICAID, SELFPAY ==
--- NOTE | 2024-12-20 12:18 | XR_ITS ---
WS: [id number] Exam: XR knee LT 1-2V [id number] Date/Time of Exam: 12/20/2024 12:27 PM Reason For Exam: L KNEE PAIN There is tricompartmental degenerative change of the LEFT knee most severe involving the medial joint compartment. No fracture or joint effusion seen. Normal soft tissues. XR/XR knee LT -2V [id number] IMPRESSION: 1. Tricompartmental DJD.
== END 2024-12-20 12:09 | disposition home or self-care (01) ==
PROVIDERS: PCP Internal Medicine; Visit Provider Nurse Practitioner Family
DX: M17.12 Unilateral primary osteoarthritis, left knee (principal)
CPT/HCPCS: 73560

== ENCOUNTER → 2024-12-21 08:24 | Outpatient (BNVA) | payer MEDICARE, MEDICAID, SELFPAY | PROVIDERS: PCP Internal Medicine; Visit Provider Internal Medicine | DX: R07.9 Chest pain, unspecified (principal); I10 Essential (primary) hypertension | CPT/HCPCS: 99213 ==

== ENCOUNTER → 2025-01-02 09:42 | Outpatient (BNVA) | payer MEDICARE, MEDICAID, SELFPAY | PROVIDERS: PCP Internal Medicine; Visit Provider Physician Assistant | DX: M25.562 Pain in left knee (principal); M17.12 Unilateral primary osteoarthritis, left knee; M23.305 Other meniscus derangements, unspecified medial meniscus, unspecified knee; M25.561 Pain in right knee | CPT/HCPCS: 20610; 73560; 73565; 99213; J3301; J9999 ==

== ENCOUNTER → 2025-01-07 09:34 | Outpatient (BNVA) | payer MEDICARE, MEDICAID, SELFPAY | PROVIDERS: PCP Internal Medicine; Visit Provider Podiatrist Foot & Ankle Surgery | DX: E11.40 Type 2 diabetes mellitus with diabetic neuropathy, unspecified (principal); L60.3 Nail dystrophy; L84 Corns and callosities; E11.8 Type 2 diabetes mellitus with unspecified complications | CPT/HCPCS: 11056; 11721 ==

== ENCOUNTER 2025-03-20 12:53 | Oncology outpatient (recurring) (ONCR) | payer MEDICARE, MEDICAID, SELFPAY ==
[2025-03-14 13:31] LABS: Basophils # 0.1 10^3/uL (0.0-0.1); Basophils % 0.7 %; Eosinophils # 0.3 10^3/uL (0.0-0.8); Eosinophils % 2.7 %; Hematocrit 43.7 % (37-53); Lymphocytes # 2.3 10^3/uL (0.8-4.8); Lymphocytes % 22.9 %; Mean Corpuscular HGB Conc 32.5 g/dL (30-55); Mean Corpuscular Hemoglobin 26.9 pg (27-33); Mean Corpuscular Volume 82.9 fl (82-101); Mean Platelet Volume 9.2 fL (7.4-10.4); Monocytes # 0.8 10^3/uL (0.2-0.9); Monocytes % 7.6 %; Neutrophils # 6.61 10^3/uL (1.8-7.7); Neutrophils % 65.9 %; Nucleated Red Blood Cells % 0 %; Platelet Count 337 10^3/cmm (157-399); Red Blood Count 5.27 10^6/uL (3.85-5.65); White Blood Count 10.03 10^3/uL (3.29-11.43)
[2025-03-14 13:36] LABS: Erythrocyte Sedimentation Rate 8 mm/hr (0-10)
[2025-03-14 13:53] LABS: Alanine Aminotransferase 15 U/L (0-41); Albumin Level 3.8 g/dL (3.5-5.2); Alkaline Phosphatase 95 U/L (40-130); Anion Gap 14.1 (5-19); Aspartate Amino Transferase 15 U/L (0-40); Blood Urea Nitrogen 12 mg/dL (8-23); Calcium 8.7 mg/dL (8.5-10.5); Carbon Dioxide 24 mmol/L (22-29); Chloride 104 mmol/L (98-107); Creatinine Clr Calc Pharmacy 91.2738; Globulin 2.7 g/dL (1.3-4.6); Glomerular Filtration Rate 67.8 mL/min (90-130); Glucose 212 mg/dL (65-115); Lactate Dehydrogenase 153 U/L (135-225); Osmolality Calculated 292 mOsm/kg (285-295); Potassium 4.1 mmol/L (3.5-5.1); Sodium 138 mmol/L (136-145); Total Bilirubin 0.7 mg/dL (0.15-1.2); Total Protein 6.5 g/dL (6.6-8.7)
--- NOTE | 2025-03-20 13:01 | XR_ITS ---
WS: [id number] Exam: XR knee LT 4V [id number] Date/Time of Exam: 03/20/2025 1:01 PM Reason For Exam: CHRONIC LEFT KNEE PAIN Comparison 01/02/2025. No fracture. 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 No joint effusion. Soft tissues are unremarkable. XR/XR knee LT 4V [id number] IMPRESSION: 1. Moderate degenerative changes medial joint compartment. Kellgren-Bogdan gr kate 2.
== END 2025-03-25 23:59 | disposition home or self-care (01) ==
PROVIDERS: Internal Medicine; PCP Internal Medicine; Visit Provider Nurse Practitioner Family
DX: M17.12 Unilateral primary osteoarthritis, left knee (principal); M25.762 Osteophyte, left knee
CPT/HCPCS: 36415; 73564; 80053; 83615; 85025; 85651; 99213